=== PATIENT | male | born 1965 | race Caucasian/White ===

== ENCOUNTER 2017-06-07 23:08 | Observation (INO) | payer MEDICAID, OTHER ==
[~2017-06-07] VITALS: Ht 172.7 cm; Wt 68.0 kg
[2017-06-07] MEDS ORDERED: ONDANSETRON HCL 4MG/2ML VIAL IV STA (23:27)
[2017-06-07] MEDS ORDERED: MORPHINE SULFATE 4 MG/ML CPJ (NOT FOR IM USE) IV STA (23:27)
[2017-06-07] MEDS ORDERED: SODIUM CHLORIDE 0.9% 1,000 ML IV ONE (23:27)
[2017-06-07 23:57] LABS: EOSINOPHILS % 1.1 % (0.0-5.0); MONOCYTES % 7.9 % (2.0-8.0)
[2017-06-08 00:01] LABS: HEMATOCRIT. 31.4 % (42.0-52.0); HEMOGLOBIN. 10.2 g/dL (14.0-18.0); LYMPHOCYTES % 30.4 % (20.0-50.0); MEAN CORPUSCULAR HEMOGLOBIN 27.6 pg (28.0-32.0); MEAN CORPUSCULAR VOLUME 84.6 fL (80.0-94.0); MEAN PLATELET VOLUME 8.9 fl (7.4-10.4); NEUTROPHILS % 59.6 % (40.0-76.0); PLATELET 318 x1000/uL (130-400); RED BLOOD CELL COUNT 3.71 mill/uL (4.7-6.1); RED CELL DISTRIBUTION WIDTH 18.5 % (11.6-14.6)
[2017-06-08 00:02] LABS: CHLORIDE 107 mEq/L (98-107)
[2017-06-08 00:04] LABS: INR 1.2; PROTHROMBIN TIME 12.2 sec (9.4-11.6)
[2017-06-08 00:10] LABS: CARBON DIOXIDE 22 mEq/L (21-32)
[2017-06-08 01:30] LABS: CLARITY URINE CLEAR (CLEAR); COLOR URINE YELLOW (YELLOW); GLUCOSE URINE NEGATIVE (NEGATIVE); KETONES URINE NEGATIVE (NEGATIVE); LEUKOCYTE ESTERASE URINE NEGATIVE (NEGATIVE); NITRITE URINE NEGATIVE (NEGATIVE); OCCULT BLOOD URINE 1+ (NEGATIVE); PROTEIN URINE 3+ (NEGATIVE); UROBILINOGEN URINE 0.2 E.U./dL (0.2-1.0)
[2017-06-08] MEDS ORDERED: ONDANSETRON HCL 4MG/2ML VIAL ONE (04:36)
[2017-06-08] MEDS ORDERED: MORPHINE SULFATE 4 MG/ML CPJ (NOT FOR IM USE) IV ONE (04:36)
[2017-06-08] MEDS ORDERED: CEFTRIAXONE 2 G PREMIX 50 ML IV ONE (04:36)
[2017-06-08] MEDS ORDERED: DIATR MEGLU/DIATRIZOATE SOLN 120ML ONE (06:00)
[2017-06-08] MEDS ORDERED: SODIUM CHLORIDE 0.9% 10ML VIAL ONE (06:00)
[2017-06-08] MEDS ORDERED: IOHEXOL-300 100 ML BOTTLE ONE (06:00)
[2017-06-08] MEDS ORDERED: ONDANSETRON HCL 4MG/2ML VIAL IV PRN ×3 (09:00→14:30)
[2017-06-08] MEDS ORDERED: MORPHINE SULFATE 4 MG/ML CPJ (NOT FOR IM USE) IV PRN ×2 (09:00)
[2017-06-08] MEDS ORDERED: HYDROCODONE/ACETAMINOPHEN 5/325MG TABLET PO PRN (09:00)
[2017-06-08] MEDS ORDERED: BUPIVACAINE HCL 0.5% (5MG/ML) 50ML ONE (09:20)
[2017-06-08] MEDS ORDERED: SKIN ADHESIVE 0.7 GM EA TOP ONE (09:20)
[2017-06-08] MEDS ORDERED: PROPOFOL 200MG/20ML VIAL IV ONE (09:36)
[2017-06-08] MEDS ORDERED: CEFAZOLIN SODIUM 1000MG/VIAL ONE (09:37)
[2017-06-08] MEDS ORDERED: SUCCINYLCHOLINE CHLORIDE 200MG/10ML VIAL IV ONE (09:38)
[2017-06-08] MEDS ORDERED: ROCURONIUM BROMIDE 10MG/ML VIAL 5ML IV ONE (09:38)
[2017-06-08] MEDS ORDERED: MIDAZOLAM HCL 2 MG/2 ML VIAL ONE (09:43)
[2017-06-08] MEDS ORDERED: FENTANYL CITRATE/PF 50MCG/ML 2ML VIAL ONE (09:44)
[2017-06-08] MEDS ORDERED: PHENYLEPHRINE HCL 10 MG/ML 1ML (IV VIAL) IV ONE (09:58)
[2017-06-08] MEDS ORDERED: NEOSTIGMINE METHYLSULFATE 1MG/ML 10 ML VIAL ONE (10:26)
[2017-06-08] MEDS ORDERED: GLYCOPYRROLATE 0.2 MG/ML 2ML VIAL ONE (10:26)
[2017-06-08] MEDS ORDERED: SODIUM CHLORIDE 0.9% 1,000 ML IV SCH (10:44)
[2017-06-08] MEDS ORDERED: METOCLOPRAMIDE HCL 10MG/2ML VIAL IV PRN (10:45)
[2017-06-08] MEDS: DEXT 5%/0.45% NACL KCL 20MEQ/L 1,000 ML IV SCH ×2 (11:00→23:25)
[2017-06-08] MEDS: HYDROMORPHONE HCL/PF 2MG/ML CPJ IV PRN ×3 (11:27→17:19)
[2017-06-08 11:52] LABS: CHLORIDE 112 mEq/L (98-107)
[2017-06-08 12:00] LABS: CARBON DIOXIDE 21 mEq/L (21-32)
[2017-06-08 12:30] VITALS: BP 115/80
[2017-06-08 13:00] VITALS: BP 115/80
[2017-06-08] MEDS ORDERED: IPRATROPIUM/ALBUTEROL 0.5-3(2.5)MG/3ML NEB INH PRN (14:30)
[2017-06-08] MEDS ORDERED: CLONIDINE 0.1MG TABLET PO PRN (14:30)
[2017-06-08] MEDS ORDERED: MORPHINE SULFATE 2 MG/ML CPJ (NOT FOR IM USE) IV PRN ×2 (14:30)
[2017-06-08] MEDS ORDERED: ACETAMINOPHEN 325MG TABLET PO PRN (14:30)
[2017-06-08] MEDS ORDERED: DIPHENHYDRAMINE 50MG/ML VIAL IV PRN (14:30)
[2017-06-08] MEDS ORDERED: MAGNESIUM/ALUMINUM HYDROXIDE/SIMETHICONE 30ML UDC PO PRN (14:30)
[2017-06-08 16:00] VITALS: BP 116/73
[2017-06-08] MEDS ORDERED: INSLIS (18:30)
[2017-06-08] MEDS ORDERED: ZOLP5TAB8 (18:30)
[2017-06-08] MEDS ORDERED: SPIR50TA26 (18:30)
[2017-06-08] MEDS ORDERED: INSU100V3 (18:30)
[2017-06-08] MEDS ORDERED: FURO20TA4 (18:30)
[2017-06-08] MEDS ORDERED: DEXTROSE 50% WATER 50ML SYRINGE IV PRN (19:15)
[2017-06-08 20:00] VITALS: BP 104/67
[2017-06-08] MEDS: BLOOD SUGAR DIAGNOSTIC STRIP TEST SCH (21:27)
[2017-06-08] MEDS: INSULIN DETEMIR UD 100 UNITS/ML SYR SUBCUT SCH (21:38)
[2017-06-08] MEDS: HYDROCODONE/ACETAMINOPHEN 5/325MG TABLET PO PRN (21:43)
[2017-06-08] MEDS: INSULIN LISPRO 100 UNITS/ML SUBCUT SCH (21:44)
[2017-06-08] MEDS: ZOLPIDEM TARTRATE 5MG TABLET PO PRN (22:41)
[2017-06-09] VITALS (7 sets, daily range): BP systolic 94–139; BP diastolic 59–96
[2017-06-09 00:10] LABS: CREATINE KINASE 97 IU/L (39-308); TROPONIN I < 0.02 ng/mL (0.00-0.04)
[2017-06-09 05:13] LABS: EOSINOPHILS % 1.8 % (0.0-5.0); HEMATOCRIT. 23.9 % (42.0-52.0); HEMOGLOBIN. 7.5 g/dL (14.0-18.0); LYMPHOCYTES % 26.5 % (20.0-50.0); MEAN CORPUSCULAR HEMOGLOBIN 27.2 pg (28.0-32.0); MEAN CORPUSCULAR VOLUME 86.4 fL (80.0-94.0); MEAN PLATELET VOLUME 8.6 fl (7.4-10.4); MONOCYTES % 7.7 % (2.0-8.0); PLATELET 195 x1000/uL (130-400); RED BLOOD CELL COUNT 2.77 mill/uL (4.7-6.1); RED CELL DISTRIBUTION WIDTH 18.3 % (11.6-14.6)
[2017-06-09 06:07] LABS: CARBON DIOXIDE 24 mEq/L (21-32); CHLORIDE 113 mEq/L (98-107); CREATINE KINASE 85 IU/L (39-308); HDL CHOLESTEROL 31 mg/dL (40-59); LDL CHOLESTEROL 85 mg/dL (5-100); TROPONIN I < 0.02 ng/mL (0.00-0.04)
[2017-06-09] MEDS: INSULIN LISPRO 100 UNITS/ML SUBCUT SCH ×4 (07:50→20:12)
[2017-06-09] MEDS: BLOOD SUGAR DIAGNOSTIC STRIP TEST SCH ×4 (07:59→21:00)
[2017-06-09] MEDS: MORPHINE SULFATE 4 MG/ML CPJ (NOT FOR IM USE) IV PRN ×3 (09:22→18:08)
[2017-06-09] MEDS ORDERED: DEXT 5%/0.45% NACL KCL 20MEQ/L 1,000 ML IV SCH (10:00)
[2017-06-09 11:35] LABS: *AMPHETAMINES SCREEN URINE NEGATIVE (NEGATIVE); *BARBITURATES SCREEN URINE NEGATIVE (NEGATIVE); *BENZODIAZEPINES SCREEN URINE NEGATIVE (NEGATIVE); *COCAINE SCREEN URINE NEGATIVE (NEGATIVE); CANNABINOID URINE SCREEN NEGATIVE (NEGATIVE); METHADONE URINE SCREEN NEGATIVE (NEGATIVE); OPIATES URINE SCREEN PRESUMTIVE POSITIVE (NEGATIVE); PHENCYCLIDINE URINE SCREEN NEGATIVE (NEGATIVE)
[2017-06-09] MEDS: ZOLPIDEM TARTRATE 5MG TABLET PO PRN (22:01)
[2017-06-09] MEDS: HYDROCODONE/ACETAMINOPHEN 5/325MG TABLET PO PRN (22:02)
[2017-06-09] MEDS: INSULIN DETEMIR UD 100 UNITS/ML SYR SUBCUT SCH (22:05)
[2017-06-10] VITALS: BP 129/70
[2017-06-10 04:00] VITALS: BP 128/71
[2017-06-10] MEDS: BLOOD SUGAR DIAGNOSTIC STRIP TEST SCH ×2 (07:30→12:09)
[2017-06-10] MEDS: INSULIN LISPRO 100 UNITS/ML SUBCUT SCH ×2 (07:50→12:10)
[2017-06-10 08:00] VITALS: BP 91/57
[2017-06-10 12:00] VITALS: BP 124/77
== END 2017-06-10 12:40 | disposition home or self-care (01) ==
LOC: ER 23:08 → 5WST 06-08 01:30 → INTOOBSV 06-08 01:30 → EDBEDREQTM 06-08 01:54 → EDBEDREQ 06-08 01:54 → ENRESERV 06-08 07:50 → 6EST 06-08 13:10
PROVIDERS: ADMIT Internal Medicine; ATTEND Internal Medicine
DX: K42.0 Umbilical hernia with obstruction, without gangrene (principal); E11.9 Type 2 diabetes mellitus without complications; I10 Essential (primary) hypertension; J98.11 Atelectasis; K70.9 Alcoholic liver disease, unspecified; K74.60 Unspecified cirrhosis of liver; K76.6 Portal hypertension; R18.8 Other ascites
CPT/HCPCS: 36415; 49587; 71010; 74177; 80048; 80053; 80061; 80305; 81001; 82248; 82550; 82962; 83605; 83690; 84443; 84484; 85025; 85610; 86850; 86900; 86901; 88302; 93005; 93970; 96372; 96374; 96375; 96376; 99285; A4216; G0378; J0330; J0690; J0696; J1170; J1815; J2250; J2270; J2370; J2405; J2710; J3010; J3490; J7030; J7040; Q9967; C1781; J2704; Q9963

== ENCOUNTER 2017-06-18 08:09 | Emergency (ER) | payer MEDICAID ==
[~2017-06-18] VITALS: Ht 172.7 cm; Wt 69.0 kg
[~2017-06-18 08:09] MED LIST: FURO20TA4; INSLIS; INSU100V3; SPIR50TA26; ZOLP5TAB8
[2017-06-18 09:36] LABS: BASOPHILS % 0.6 % (0.0-2.0); EOSINOPHILS % 3.5 % (0.0-5.0); HEMATOCRIT. 27.5 % (42.0-52.0); HEMOGLOBIN. 9.2 g/dL (14.0-18.0); LYMPHOCYTES % 28.7 % (20.0-50.0); MEAN CORPUSCULAR HEMOGLOBIN 28.3 pg (28.0-32.0); MEAN CORPUSCULAR VOLUME 84.6 fL (80.0-94.0); MEAN PLATELET VOLUME 7.7 fl (7.4-10.4); MONOCYTES % 7.2 % (2.0-8.0); PLATELET 157 x1000/uL (130-400); RED BLOOD CELL COUNT 3.26 mill/uL (4.7-6.1); RED CELL DISTRIBUTION WIDTH 18.6 % (11.6-14.6)
[2017-06-18 09:45] LABS: INR 1.2; PARTIAL THROMBOPLASTIN TIME 25.3 sec (23.4-31.0); PROTHROMBIN TIME 12.6 sec (9.4-11.6)
[2017-06-18 09:46] LABS: CARBON DIOXIDE 28 mEq/L (21-32); CHLORIDE 109 mEq/L (98-107)
[2017-06-18] MEDS ORDERED: SODIUM BICARBONATE 4% (2.4MEQ) 5ML VIAL IV ONE (10:14)
[2017-06-18] MEDS ORDERED: SODIUM BICARBONATE 4.2% 5 MEQ/10 ML DISP.SYRIN IV ONE (10:14)
[2017-06-18] MEDS ORDERED: LIDOCAINE HCL 1% 20ML VIAL (Pyxis) INJ ONE ×2 (10:17)
[2017-06-18 12:07] VITALS: BP 119/79
== END 2017-06-18 12:09 | disposition home or self-care (01) ==
LOC: ER 08:17
DX: K74.60 Unspecified cirrhosis of liver (principal); R18.8 Other ascites; I10 Essential (primary) hypertension; D72.819 Decreased white blood cell count, unspecified; D64.9 Anemia, unspecified; E11.65 Type 2 diabetes mellitus with hyperglycemia; Z98.890 Other specified postprocedural states; Z79.4 Long term (current) use of insulin
CPT/HCPCS: 36415; 49083; 80053; 82962; 85025; 85610; 85730; 99285; J3490; Z7610

== ENCOUNTER 2017-07-04 07:31 | Emergency (ER) | payer MEDICAID ==
[~2017-07-04] VITALS: Ht 172.7 cm; Wt 70.0 kg
[2017-07-04 09:27] LABS: BASOPHILS % 0.4 % (0.0-2.0); EOSINOPHILS % 2.3 % (0.0-5.0); HEMATOCRIT. 28.3 % (42.0-52.0); HEMOGLOBIN. 9.1 g/dL (14.0-18.0); LYMPHOCYTES % 28.9 % (20.0-50.0); MEAN CORPUSCULAR HEMOGLOBIN 27.6 pg (28.0-32.0); MEAN CORPUSCULAR VOLUME 85.9 fL (80.0-94.0); MEAN PLATELET VOLUME 8.9 fl (7.4-10.4); MONOCYTES % 4.8 % (2.0-8.0); NEUTROPHILS % 63.6 % (40.0-76.0); PLATELET 161 x1000/uL (130-400); RED CELL DISTRIBUTION WIDTH 18.6 % (11.6-14.6)
[2017-07-04 09:36] LABS: INR 1.2; PARTIAL THROMBOPLASTIN TIME 24.6 sec (23.4-31.0); PROTHROMBIN TIME 12.2 sec (9.4-11.6)
[2017-07-04] MEDS ORDERED: LIDOCAINE HCL 1% 20ML VIAL (Pyxis) INJ ONE (10:13)
[2017-07-04] MEDS ORDERED: SODIUM BICARBONATE 4% (2.4MEQ) 5ML VIAL IV ONE (10:14)
[2017-07-04 12:20] VITALS: BP 116/64
== END 2017-07-04 12:29 | disposition home or self-care (01) ==
LOC: ER 07:56
DX: R18.8 Other ascites (principal); I10 Essential (primary) hypertension; E11.40 Type 2 diabetes mellitus with diabetic neuropathy, unspecified; Z79.4 Long term (current) use of insulin
CPT/HCPCS: 36415; 49083; 85025; 85610; 85730; 99285; J3490; Z7610

== ENCOUNTER → 2017-07-18 | Day surgery (SDC) | payer MEDICAID ==
[~2017-07-18] MED LIST changes: +LIDOCAINE HCL 1% 20ML VIAL (Pyxis) INJ ONE; +SODIUM BICARBONATE 4% (2.4MEQ) 5ML VIAL IV ONE
== END ==
LOC: RAD 09:32
DX: R18.8 Other ascites (principal)
CPT/HCPCS: 49083; J3490

== ENCOUNTER 2017-08-15 07:21 | Emergency (ER) | payer MEDICAID ==
[~2017-08-15] VITALS: Ht 172.7 cm; Wt 75.0 kg
[~2017-08-15 07:21] MED LIST changes: -LIDOCAINE HCL 1% 20ML VIAL (Pyxis) INJ ONE; -SODIUM BICARBONATE 4% (2.4MEQ) 5ML VIAL IV ONE
[2017-08-15 09:01] LABS: INR 1.2; PARTIAL THROMBOPLASTIN TIME 23.5 sec (23.4-31.0); PROTHROMBIN TIME 12.7 sec (9.4-11.6)
[2017-08-15 09:02] LABS: BASOPHILS % 0.2 % (0.0-2.0); EOSINOPHILS % 1.5 % (0.0-5.0); HEMATOCRIT. 26.8 % (42.0-52.0); HEMOGLOBIN. 8.9 g/dL (14.0-18.0); LYMPHOCYTES % 26.2 % (20.0-50.0); MEAN CORPUSCULAR HEMOGLOBIN 28.5 pg (28.0-32.0); MEAN CORPUSCULAR VOLUME 85.7 fL (80.0-94.0); MEAN PLATELET VOLUME 7.7 fl (7.4-10.4); MONOCYTES % 5.5 % (2.0-8.0); NEUTROPHILS % 66.6 % (40.0-76.0); PLATELET 132 x1000/uL (130-400); RED BLOOD CELL COUNT 3.12 mill/uL (4.7-6.1); RED CELL DISTRIBUTION WIDTH 16.4 % (11.6-14.6)
[2017-08-15 09:07] LABS: CARBON DIOXIDE 28 mEq/L (21-32); CHLORIDE 101 mEq/L (98-107)
[2017-08-15] MEDS ORDERED: LIDOCAINE HCL 1% 20ML VIAL (Pyxis) INJ ONE (09:33)
[2017-08-15] MEDS ORDERED: SODIUM BICARBONATE 4% (2.4MEQ) 5ML VIAL IV ONE (09:34)
[2017-08-15 11:34] VITALS: BP 142/89
== END 2017-08-15 12:30 | disposition home or self-care (01) ==
LOC: ER 07:21
DX: R18.8 Other ascites (principal); I10 Essential (primary) hypertension; E11.9 Type 2 diabetes mellitus without complications; Z79.4 Long term (current) use of insulin; R79.1 Abnormal coagulation profile
CPT/HCPCS: 36415; 49083; 80053; 83690; 85025; 85610; 85730; 93005; 99285; J3490; Z7610

== ENCOUNTER 2017-09-16 09:58 | Emergency (ER) | payer MEDICAID ==
[~2017-09-16] VITALS: Ht 172.7 cm; Wt 75.0 kg
[2017-09-16 10:04] VITALS: BP 112/84
[2017-09-16] MEDS ORDERED: SODIUM CHLORIDE 0.9% 1,000 ML IV ONE (11:35)
[2017-09-16] MEDS ORDERED: FAMOTIDINE 20MG/2ML VIAL IV ONE (11:45)
== END 2017-09-16 12:30 | disposition left against medical advice (07) ==
LOC: ER 10:03
DX: F10.129 Alcohol abuse with intoxication, unspecified (principal); R10.9 Unspecified abdominal pain; Z53.21 Procedure and treatment not carried out due to patient leaving prior to being seen by health care provider
CPT/HCPCS: J7030

== ENCOUNTER 2017-09-25 07:01 | Emergency (ER) | payer MEDICAID ==
[~2017-09-25] VITALS: Ht 172.7 cm; Wt 73.0 kg
[2017-09-25 09:04] LABS: CLARITY URINE CLEAR (CLEAR); COLOR URINE DARK YELLOW (YELLOW); KETONES URINE NEGATIVE (NEGATIVE); LEUKOCYTE ESTERASE URINE NEGATIVE (NEGATIVE); NITRITE URINE NEGATIVE (NEGATIVE); OCCULT BLOOD URINE 2+ (NEGATIVE); PROTEIN URINE 3+ (NEGATIVE); SPECIFIC GRAVITY URINE 1.022 (1.005-1.030)
[2017-09-25 09:07] LABS: BASOPHILS % 0.2 % (0.0-2.0); EOSINOPHILS % 1.8 % (0.0-5.0); HEMATOCRIT. 25.4 % (42.0-52.0); HEMOGLOBIN. 8.1 g/dL (14.0-18.0); MEAN CORPUSCULAR HEMOGLOBIN 27.2 pg (28.0-32.0); MEAN CORPUSCULAR VOLUME 85.1 fL (80.0-94.0); MEAN PLATELET VOLUME 7.8 fl (7.4-10.4); MONOCYTES % 7.4 % (2.0-8.0); NEUTROPHILS % 66.6 % (40.0-76.0); PLATELET 107 x1000/uL (130-400); RED BLOOD CELL COUNT 2.98 mill/uL (4.7-6.1); RED CELL DISTRIBUTION WIDTH 17.1 % (11.6-14.6)
[2017-09-25 09:15] LABS: INR 1.3; PARTIAL THROMBOPLASTIN TIME 23.1 sec (23.4-31.0); PROTHROMBIN TIME 13.1 sec (9.4-11.6)
[2017-09-25 09:21] LABS: CARBON DIOXIDE 32 mEq/L (21-32); CHLORIDE 108 mEq/L (98-107)
[2017-09-25] MEDS ORDERED: SODIUM BICARBONATE 4% (2.4MEQ) 5ML VIAL IV ONE (09:57)
[2017-09-25] MEDS ORDERED: LIDOCAINE HCL 1% 20ML VIAL (Pyxis) INJ ONE (09:57)
[2017-09-25 12:10] VITALS: BP 129/65
== END 2017-09-25 12:51 | disposition home or self-care (01) ==
LOC: ER 08:00
DX: K74.60 Unspecified cirrhosis of liver (principal); R18.8 Other ascites; R03.0 Elevated blood-pressure reading, without diagnosis of hypertension; E11.9 Type 2 diabetes mellitus without complications; F10.10 Alcohol abuse, uncomplicated; Y90.9 Presence of alcohol in blood, level not specified; Z79.4 Long term (current) use of insulin
CPT/HCPCS: 36415; 49083; 80053; 81001; 82962; 83690; 85025; 85610; 85730; 99285; J3490; Z7610

== ENCOUNTER 2017-11-14 07:10 | Emergency (ER) | payer MEDICAID ==
[~2017-11-14] VITALS: Ht 172.7 cm; Wt 70.0 kg
[2017-11-14] MEDS ORDERED: HYDROCODONE/ACETAMINOPHEN 5/325MG TABLET PO ONE (08:00)
[2017-11-14 08:27] VITALS: BP 131/84
== END 2017-11-14 08:45 | disposition home or self-care (01) ==
LOC: ER 07:10
DX: K40.90 Unilateral inguinal hernia, without obstruction or gangrene, not specified as recurrent (principal); E11.9 Type 2 diabetes mellitus without complications; Z79.4 Long term (current) use of insulin; Z98.890 Other specified postprocedural states
CPT/HCPCS: 99283